=== PATIENT | female | born 1970 | race African-American/Black ===

== ENCOUNTER → 2019-03-15 | Outpatient (CLI) | payer OTHER ==
[2019-03-15 13:57] LABS: BASO % 1 % (0-3); EOS % 0 % (0-3); HEMATOCRIT 36.9 % (36.0-47.0); HEMOGLOBIN 12.3 g/dL (12.0-15.5); LYMPH % 24 % (24-48); MEAN CORPUSCULAR HEMOGLOBIN 30 pg (25-35); MEAN CORPUSCULAR HGB CONC 33 g/dL (31-37); MEAN CORPUSCULAR VOLUME 89 fL (79-100); MONO # 0.7 x10^3/uL (0.0-1.1); MONO % 8 % (0-9); NEUT # 5.6 x10^3uL (1.8-7.7); NEUT % 67 % (31-73); PLATELET COUNT 246 x10^3/uL (140-400); RED BLOOD COUNT 4.13 x10^6/uL (3.50-5.40); WHITE BLOOD COUNT 8.3 x10^3/uL (4.0-11.0)
[2019-03-15 16:20] LABS: BILIRUBIN,URINE NEGATIVE (NEG); CLARITY,URINE CLEAR; COLOR,URINE YELLOW; NITRITE,URINE NEGATIVE (NEG); PROTEIN,URINE NEGATIVE (NEG-TRACE)
[2019-03-15 17:08] LABS: BACTERIA,URINE FEW /HPF (0-FEW); RBC,URINE OCC /HPF (0-2); SQUAMOUS EPITHELIAL CELL,UR MOD /LPF; WBC,URINE OCC /HPF (0-4)
[2019-03-15 17:09] LABS: AMORPHOUS SEDIMENT,UR PRESENT /HPF
== END | disposition home or self-care (01) ==
LOC: LAB 12:37
PROVIDERS: ATTEND Obstetrics & Gynecology
DX: O09.521 Supervision of elderly multigravida, first trimester (principal); O34.219 Maternal care for unspecified type scar from previous cesarean delivery; Z3A.00 Weeks of gestation of pregnancy not specified
CPT/HCPCS: 36415; 81001; 81220; 85025; 85660; 86592; 86703; 86762; 86850; 86900; 86901; 87340

== ENCOUNTER → 2019-06-10 | Outpatient (CLI) | payer OTHER ==
--- NOTE | 2019-06-10 15:59 | KCIC ---
EXAM: Obstetrics sonogram. HISTORY: anatomy survey. TECHNIQUE: Sonographic imaging of a gravid uterus was performed. COMPARISON: None. FINDINGS: There is a single intrauterine fetus in cephalic presentation with a heart rate of 144 bpm. There is a three-vessel umbilical cord with normal insertion. There is an anterior placenta without evidence of placenta previa. The amniotic fluid index is normal at 15.2 cm. The stomach, kidneys, bladder, spine, brain, facial profile, extremities and heart are unremarkable. The cervix is closed and measures 5.5 cm in length. The biparietal diameter is 6.23 cm, corresponding with 25 weeks and 2 days. The head circumference is 23.60 cm, corresponding with 25 weeks and 5 days. The abdominal circumference is 20.63 cm, corresponding with 25 weeks and 1 day. The femoral length is 4.57 cm, corresponding with 25 weeks and 1 day. The estimated gestational age patient combined ultrasound measurements is 25 weeks and 2 days and the estimated weight is 785 g. This corresponds with the 46th percentile for an estimated gestational age based on LMP of 25 weeks and 1 day. The due date is estimated at 09/21/2019. IMPRESSION: 1. Single intrauterine fetus with an estimated gestational age of 25 weeks and 2 days and heart rate of 144 bpm. 2. Unremarkable anatomy survey. Electronically signed by: Mariposa Malin MD (06/10/2019 3:56 PM) [place] [id number]
== END | disposition home or self-care (01) ==
LOC: KCIC US 14:30
PROVIDERS: ATTEND Obstetrics & Gynecology
DX: O26.842 Uterine size-date discrepancy, second trimester (principal); Z3A.25 25 weeks gestation of pregnancy
CPT/HCPCS: 76805

== ENCOUNTER 2019-09-02 14:46 | Observation (INO) | payer OTHER ==
[2019-09-02] MEDS ORDERED: IV RINGERS,LACTATED 1000ML 1,000 ML IV SCH (15:26)
[2019-09-02 15:37] LABS: BILIRUBIN,URINE SMALL (NEG); CLARITY,URINE CLEAR; COLOR,URINE AMBER; NITRITE,URINE NEGATIVE (NEG); PROTEIN,URINE NEGATIVE (NEG-TRACE)
[2019-09-02 16:02] LABS: BACTERIA,URINE MODERATE /HPF (0-FEW); RBC,URINE 0 /HPF (0-2); SQUAMOUS EPITHELIAL CELL,UR FEW /LPF
[2019-09-02] MEDS ORDERED: IV DEXTROSE 5%-LACT RINGERS 1,000 ML IV ONE (16:15)
[2019-09-02 16:32] LABS: BASO % 0 % (0-3); EOS % 1 % (0-3); HEMATOCRIT 34.4 % (36.0-47.0); HEMOGLOBIN 11.7 g/dL (12.0-15.5); LYMPH # 1.3 x10^3/uL (1.0-4.8); LYMPH % 23 % (24-48); MEAN CORPUSCULAR HEMOGLOBIN 29 pg (25-35); MEAN CORPUSCULAR HGB CONC 34 g/dL (31-37); MEAN CORPUSCULAR VOLUME 87 fL (79-100); MONO # 0.5 x10^3/uL (0.0-1.1); MONO % 9 % (0-9); NEUT # 3.8 x10^3/uL (1.8-7.7); NEUT % 68 % (31-73); PLATELET COUNT 252 x10^3/uL (140-400); RED BLOOD COUNT 3.98 x10^6/uL (3.50-5.40); RED CELL DISTRIBUTION WIDTH 13.6 % (11.5-14.5); WHITE BLOOD COUNT 5.7 x10^3/uL (4.0-11.0)
[2019-09-02 17:17] LABS: CALCIUM 8.6 mg/dL (8.5-10.1); CREATININE 0.8 mg/dL (0.6-1.0); GFR 93.4; POTASSIUM 3.4 mmol/L (3.5-5.1)
== END 2019-09-02 18:18 | disposition home or self-care (01) ==
LOC: 3 SO LND 14:46
PROVIDERS: ADMIT Obstetrics & Gynecology; ATTEND Obstetrics & Gynecology
DX: O26.893 Other specified pregnancy related conditions, third trimester (principal); R42 Dizziness and giddiness; R61 Generalized hyperhidrosis; Z3A.37 37 weeks gestation of pregnancy
CPT/HCPCS: 36415; 80048; 81001; 85025; 87086; G0378; G0379